=== PATIENT | female | born 1950 | race Caucasian/White ===

== ENCOUNTER → 2016-12-25 | Outpatient (CLI) | payer OTHER ==
--- NOTE | 2016-12-26 07:21 | WWHP ---
DATE OF SERVICE: 12/25/2016 CHIEF COMPLAINT: The patient is here for her routine gynecologic exam. HPI: This is a 66-year-old G4, P3-0-1-3 with an LMP of 2003, who is status post vaginal hysterectomy for benign reasons. The patient is without gynecologic complaints. She is using coconut oil p.r.n. for lubrication during sexual intercourse and this has worked out well for her. PAST MEDICAL HISTORY: Right breast cancer diagnosed in 2008 and is status post lumpectomy and radiation therapy. Also history of skin cancer, chronic hypertension and asthma. Dr. Mcghee is her oncologist and Dr. Farley is her primary care physician. MEDICATIONS: 1. Amlodipine 10 mg daily. 2. Hydrochlorothiazide 25 mg daily. Allergies to LOTREL and DILAUDID. Past surgical, [employer] SAL[employer] REPRESENT[employer]IVE, and family histories are unchanged from the 2016 H&P. SOCIAL HISTORY: She denies tobacco, alcohol, and drug use. She quit smoking in her 30s. She has been since 1970 and does not work outside the home. REVIEW OF SYSTEMS: She has gained about 5 pounds over the last year. She denies respiratory, cardiac, or GI problems. PHYSICAL EXAM: Blood pressure 138/71. Height 5 feet 1 inch. Weight 160 pounds. Temperature 98.2, pulse 81. This a well-developed, well-nourished white female who is alert and oriented x3 in no acute distress. HEENT is within normal limits. NECK: Supple without mass or thyromegaly. CHEST AND LUNGS: Clear to auscultation. HEART: Regular rate and rhythm. Breasts are without mass or discharge. There is a slight indentation consistent with her previous lumpectomy in the outer upper aspect of the right breast. Axillary exam is negative for adenopathy. There is mild tenderness in the area of her previous lymphadenectomy. She states it has always been tender in that area after the surgery. BACK: Negative for CVA tenderness. ABDOMEN: Soft, nontender, without palpable masses. PELVIC EXAM: External genitalia reveals mild to moderate atrophy without lesions. Vagina reveals mild to moderate atrophy without lesions. There is no evidence of prolapse. Bimanual exam is negative for mass or tenderness. Rectovaginal exam is negative for mass or tenderness and is negative for occult blood. EXTREMITIES: Nontender. IMPRESSION: 1. A 66-year-old menopausal female, status post vaginal hysterectomy for benign reasons. 2. History of right breast cancer with no evidence of recurrence. 3. Normal gynecologic exam. PLAN: 1. Pap smears have been discontinued. 2. Self breast examination was discussed. 3. Mammogram will be due in 05/2017 and she states she will do this through Dr. Mcghee. 4. Osteoporosis prevention was discussed. 5. She will return in one year.
== END | disposition home or self-care (01) ==
LOC: WWCWWP 15:21
PROVIDERS: ATTEND Obstetrics & Gynecology
DX: Z01.419 Encounter for gynecological examination (general) (routine) without abnormal findings (principal)

== ENCOUNTER → 2017-03-08 | Outpatient (CLI) | payer OTHER ==
[2017-03-08 11:02] LABS: Anion Gap 12 mmol/L; Blood Urea Nitrogen 16 mg/dL (7-17); Calcium 9.8 mg/dL (8.4-10.2); Carbon Dioxide 26 mmol/L (22-30); Chloride 104 mmol/L (98-107); Glucose 94 mg/dL (74-99); Non-African American GFR(MDRD) >60 (>60 ml/min/1.73 sqM); Potassium 4.1 mmol/L (3.5-5.1); Sodium 142 mmol/L (137-145)
== END | disposition home or self-care (01) ==
LOC: LABWHC1 10:01
PROVIDERS: ATTEND Internal Medicine Clinical Cardiac Electrophysiology
DX: I10 Essential (primary) hypertension (principal)
CPT/HCPCS: 36415; 80048

== ENCOUNTER 2017-06-21 23:06 | Emergency (ER) | payer OTHER ==
--- NOTE | 2017-06-21 23:48 | ED ---
Recheck HPI - General Chief Complaint: Recheck/Abnormal Lab/Rx Stated Complaint: HTN Time Seen by Provider: 06/21/17 23:33 Source: patient, family, RN notes reviewed Mode of arrival: ambulatory Limitations: no limitations - History of Present Illness Initial Comments: Patient is a pleasant 66-year-old male presenting to the emergency department complaining of high blood pressure. Patient noticed her legs were a little bit swollen which does happen at times. Patient checked her blood pressure and readings were as high as 185/94. Patient states when she was lying down and raising her legs and felt like her heart rate was elevated. No chest pain. No dyspnea. Patient does have a history of hypertension previously as well. No calf pain. Patient does admit to having some neck problems however states she believes this is secondary to her pillow and is not really bothering her that much. - Related Data Home Medications Medication Instructions Recorded Confirmed Triamterene-Hctz 37.5-25Mg 1 cap PO DAILY 06/21/17 06/21/17 [Dyazide 37.5-25 Capsule] amLODIPine [Norvasc] 10 mg PO DAILY 06/21/17 06/21/17 Allergies Allergy/AdvReac Type Severity Reaction Status Date / Time benazepril [From Lotrel] Allergy Rash/Hives Verified 06/21/17 23:47 hydromorphone [From Dilaudid] AdvReac Vomiting Verified 06/21/17 23:47 Review of Systems ROS Statement: Those systems with pertinent positive or pertinent negative responses have been documented in the HPI. ROS Other: All systems not noted in ROS Statement are negative. Constitutional: Denies: fever Eyes: Denies: eye pain ENT: Denies: ear pain Respiratory: Denies: cough Cardiovascular: Reports: palpitations. Denies: chest pain Endocrine: Denies: fatigue Gastrointestinal: Denies: abdominal pain Genitourinary: Denies: dysuria Musculoskeletal: Denies: back pain Skin: Denies: rash Neurological: Denies: headache Past Medical History Past Medical History: Cancer, Hypertension History of Any Multi-Drug Resistant Organisms: None Reported Past Surgical History: Breast Surgery Additional Past Surgical History / Comment(s): skin cancer removed Past Psychological History: No Psychological Hx Reported Smoking Status: Never smoker Past Alcohol Use History: None Reported Past Drug Use History: None Reported General Exam Limitations: no limitations General appearance: alert, in no apparent distress Head exam: Present: atraumatic Eye exam: Present: normal appearance, PERRL ENT exam: Present: normal oropharynx Neck exam: Present: normal inspection Respiratory exam: Present: normal lung sounds bilaterally Cardiovascular Exam: Present: regular rate, normal rhythm Expanded Peripheral pulses: 2+: Radial (R), Radial (L), Dorsalis Pedis (R), Dorsalis Pedis (L) GI/Abdominal exam: Present: soft. Absent: tenderness Extremities exam: Present: pedal edema (Trace bilateral). Absent: calf tenderness Neurological exam: Present: alert Psychiatric exam: Present: normal affect, normal mood Skin exam: Present: normal color Course Vital Signs 06/21/17 06/22/17 23:12 00:26 Temperature 98.2 F Pulse Rate 105 H 75 Respiratory 20 16 Rate Blood Pressure 179/92 139/69 O2 Sat by Pulse 97 96 Oximetry - Reevaluation(s) Reevaluation #1: 06/21/17 23:47 EKG: Normal sinus rhythm 99. VA 150. QRS 80. QT 344. QTC 441. Normal axis. Normal QRS. No acute ST change. Medical Decision Making - Medical Decision Making Patient reevaluated and resting comfortably in bed. Patient symptom-free at this time. Patient and family were updated on results and need for follow-up. - Lab Data Result diagrams: 06/21/17 23:30 06/21/17 23:30 Lab Results 06/21/17 06/21/17 06/21/17 Range/Units 23:30 23:30 23:30 WBC 13.3 H (3.8-10.6) k/uL RBC 5.35 (3.80-5.40) m/uL Hgb 15.8 (11.4-16.0) gm/dL Hct 46.3 H (34.0-46.0) % MCV 86.6 (80.0-100.0) fL MCH 29.5 (25.0-35.0) pg MCHC 34.1 (31.0-37.0) g/dL RDW 14.0 (11.5-15.5) % Plt Count 288 (150-450) k/uL Neutrophils % 79 % Lymphocytes % 13 % Monocytes % 6 % Eosinophils % 1 % Basophils % 1 % Neutrophils # 10.5 H (1.3-7.7) k/uL Lymphocytes # 1.7 (1.0-4.8) k/uL Monocytes # 0.8 (0-1.0) k/uL Eosinophils # 0.1 (0-0.7) k/uL Basophils # 0.1 (0-0.2) k/uL PT (9.0-12.0) sec INR (<1.2) APTT (22.0-30.0) sec D-Dimer (<0.60) mg/L FEU Sodium 141 (137-145) mmol/L Potassium 3.7 (3.5-5.1) mmol/L Chloride 104 (98-107) mmol/L Carbon Dioxide 23 (22-30) mmol/L Anion Gap 14 mmol/L BUN 15 (7-17) mg/dL Creatinine 0.60 (0.52-1.04) mg/dL Est GFR (MDRD) Af Amer >60 (>60 ml/min/1.73 sqM) Est GFR (MDRD) Non-Af >60 (>60 ml/min/1.73 sqM) Glucose 118 H (74-99) mg/dL Calcium 10.0 (8.4-10.2) mg/dL Magnesium 2.1 (1.6-2.3) mg/dL Total Bilirubin 0.5 (0.2-1.3) mg/dL AST 22 (14-36) U/L ALT 37 (9-52) U/L Alkaline Phosphatase 88 (38-126) U/L Total Creatine Kinase 89 (30-135) U/L CK-MB (CK-2) 0.9 (0.0-2.4) ng/mL CK-MB (CK-2) Rel Index 1.0 Troponin I <0.012 (0.000-0.034) ng/mL NT-Pro-B Natriuret Pep pg/mL Total Protein 7.9 (6.3-8.2) g/dL Albumin 4.7 (3.5-5.0) g/dL TSH 3.870 (0.465-4.680) mIU/L Free T4 1.26 (0.78-2.19) ng/dL Free T3 pg/mL 4.6 (2.8-5.3) pg/ml 06/21/17 06/21/17 Range/Units 23:30 23:30 WBC (3.8-10.6) k/uL RBC (3.80-5.40) m/uL Hgb (11.4-16.0) gm/dL Hct (34.0-46.0) % MCV (80.0-100.0) fL MCH (25.0-35.0) pg MCHC (31.0-37.0) g/dL RDW (11.5-15.5) % Plt Count (150-450) k/uL Neutrophils % % Lymphocytes % % Monocytes % % Eosinophils % % Basophils % % Neutrophils # (1.3-7.7) k/uL Lymphocytes # (1.0-4.8) k/uL Monocytes # (0-1.0) k/uL Eosinophils # (0-0.7) k/uL Basophils # (0-0.2) k/uL PT 10.2 (9.0-12.0) sec INR 1.0 (<1.2) APTT 24.0 (22.0-30.0) sec D-Dimer 0.45 (<0.60) mg/L FEU Sodium (137-145) mmol/L Potassium (3.5-5.1) mmol/L Chloride (98-107) mmol/L Carbon Dioxide (22-30) mmol/L Anion Gap mmol/L BUN (7-17) mg/dL Creatinine (0.52-1.04) mg/dL Est GFR (MDRD) Af Amer (>60 ml/min/1.73 sqM) Est GFR (MDRD) Non-Af (>60 ml/min/1.73 sqM) Glucose (74-99) mg/dL Calcium (8.4-10.2) mg/dL Magnesium (1.6-2.3) mg/dL Total Bilirubin (0.2-1.3) mg/dL AST (14-36) U/L ALT (9-52) U/L Alkaline Phosphatase (38-126) U/L Total Creatine Kinase (30-135) U/L CK-MB (CK-2) (0.0-2.4) ng/mL CK-MB (CK-2) Rel Index Troponin I (0.000-0.034) ng/mL NT-Pro-B Natriuret Pep 51 pg/mL Total Protein (6.3-8.2) g/dL Albumin (3.5-5.0) g/dL TSH (0.465-4.680) mIU/L Free T4 (0.78-2.19) ng/dL Free T3 pg/mL (2.8-5.3) pg/ml - Radiology Data Radiology results: image reviewed (Chest x-ray shows no acute findings.) Disposition Clinical Impression: Episode of hypertension, Palpitations Disposition: HOME SELF-CARE Condition: Stable Instructions: Hypertension (ED), Palpitations (ED), Edema (ED) Additional Instructions: Please follow-up with your primary care physician in the next day or 2 for recheck. Return for leg pain, leg swelling, chest pain, uncontrolled blood pressure, increased heart rate, worsening or change in symptoms or other concerns. Referrals: Elian Farley MD [Primary Care Provider] - 1-2 days Time of Disposition: 01:25
[2017-06-22 00:10] LABS: Basophils # (A) 0.1 k/uL (0-0.2); Basophils % (A) 1 %; CH 30.9; CHCM 35.9; Eosinophils # (A) 0.1 k/uL (0-0.7); Eosinophils % (A) 1 %; HCT 46.3 % (34.0-46.0); HDW 2.58; HGB 15.8 gm/dL (11.4-16.0); Luc # (Auto) 0.15; Luc % (Auto) 1; Lymphocytes # (A) 1.7 k/uL (1.0-4.8); Lymphocytes % (A) 13 %; MCH 29.5 pg (25.0-35.0); MCHC 34.1 g/dL (31.0-37.0); MCV 86.6 fL (80.0-100.0); Mean Platelet Volume 8.5; Monocytes # (A) 0.8 k/uL (0-1.0); Monocytes % (A) 6 %; Neutrophils # (A) 10.5 k/uL (1.3-7.7); Neutrophils % (A) 79 %; RBC 5.35 m/uL (3.80-5.40); WBC 13.3 k/uL (3.8-10.6); WBC (Perox) 13.35
--- NOTE | 2017-06-22 00:11 | XR ---
EXAM: XR Chest, 2 Views CLINICAL HISTORY: Reason: dysrhythmia TECHNIQUE: Frontal and lateral views of the chest. COMPARISON: 01/05/15 FINDINGS: Lungs: Unremarkable. No consolidation. Pleural space: Unremarkable. No pneumothorax. Heart: Unremarkable. No cardiomegaly. Mediastinum: Unremarkable. Bones/joints: Unremarkable. Soft tissues: Surgical clips noted over the right axilla. IMPRESSION: No acute findings.
[2017-06-22 00:22] LABS: ALT 37 U/L (9-52); AST 22 U/L (14-36); Alkaline Phosphatase 88 U/L (38-126); Anion Gap 14 mmol/L; Blood Urea Nitrogen 15 mg/dL (7-17); Carbon Dioxide 23 mmol/L (22-30); Chloride 104 mmol/L (98-107); Glucose 118 mg/dL (74-99); Magnesium 2.1 mg/dL (1.6-2.3); Non-African American GFR(MDRD) >60 (>60 ml/min/1.73 sqM); Potassium 3.7 mmol/L (3.5-5.1); Prothrombin Time 10.2 sec (9.0-12.0); Sodium 141 mmol/L (137-145); Total Bilirubin 0.5 mg/dL (0.2-1.3); Total Protein 7.9 g/dL (6.3-8.2)
[2017-06-22 00:27] VITALS: RESP 16
[2017-06-22 00:34] LABS: Creatine Kinase 89 U/L (30-135)
[2017-06-22 00:47] LABS: Creatine Kinase MB 0.9 ng/mL (0.0-2.4); Troponin I <0.012 ng/mL (0.000-0.034)
[2017-06-22 01:38] VITALS: BP 123/68; PULSE 74; TEMP 97.4
== END 2017-06-22 01:38 | disposition home or self-care (01) ==
LOC: EC 23:06
DX: I10 Essential (primary) hypertension (principal); R00.2 Palpitations; M79.89 Other specified soft tissue disorders; Z85.828 Personal history of other malignant neoplasm of skin; Z79.899 Other long term (current) drug therapy; Z88.5 Allergy status to narcotic agent; Z88.8 Allergy status to other drugs, medicaments and biological substances
CPT/HCPCS: 36415; 71020; 80053; 82550; 82553; 83735; 83880; 84439; 84443; 84481; 84484; 85025; 85379; 85610; 85730; 93005; 99284

== ENCOUNTER 2017-11-11 03:59 | Emergency (ER) | payer MEDICARE, OTHER ==
[2017-11-11 04:53] LABS: Basophils # (A) 0.1 k/uL (0-0.2); Basophils % (A) 1 %; Eosinophils # (A) 0.3 k/uL (0-0.7); Eosinophils % (A) 1 %; HCT 46.1 % (34.0-46.0); HGB 15.4 gm/dL (11.4-16.0); Lymphocytes # (A) 1.2 k/uL (1.0-4.8); Lymphocytes % (A) 6 %; MCH 28.5 pg (25.0-35.0); MCHC 33.4 g/dL (31.0-37.0); MCV 85.4 fL (80.0-100.0); Mean Platelet Volume 8.2; Monocytes # (A) 1.1 k/uL (0-1.0); Monocytes % (A) 5 %; Neutrophils # (A) 17.9 k/uL (1.3-7.7); Neutrophils % (A) 86 %; Platelet Count 284 k/uL (150-450); RBC 5.39 m/uL (3.80-5.40); RDW 13.8 % (11.5-15.5); WBC 20.7 k/uL (3.8-10.6)
[2017-11-11 05:08] LABS: ALT 18 U/L (9-52); AST 25 U/L (14-36); Albumin 4.3 g/dL (3.5-5.0); Alkaline Phosphatase 76 U/L (38-126); Amylase 55 U/L (30-110); Anion Gap 16 mmol/L; Blood Urea Nitrogen 17 mg/dL (7-17); Calcium 9.9 mg/dL (8.4-10.2); Carbon Dioxide 22 mmol/L (22-30); Chloride 106 mmol/L (98-107); Glucose 119 mg/dL (74-99); Lipase 99 U/L (23-300); Potassium 3.7 mmol/L (3.5-5.1); Sodium 144 mmol/L (137-145); Total Bilirubin 0.4 mg/dL (0.2-1.3); Total Protein 7.3 g/dL (6.3-8.2)
--- NOTE | 2017-11-11 05:08 | ED ---
Nausea/Vomiting/Diarrhea HPI - General Source: patient Mode of arrival: ambulatory Limitations: no limitations - History of Present Illness MD complaint: nausea, vomiting, diarrhea, abdominal pain Onset/Timin -: hour(s) Description of Vomiting: food contents Associated Abdominal Pain: Yes Location: epigastric Radiation: none Severity: severe Quality: aching Consistency: intermittent, now resolved Improves with: none Worsens with: none Associated Symptoms: nausea/vomiting <Jamal Carrasco - Last Filed: 11/11/17 05:14> <Elian Perdue - Last Filed: 11/11/17 08:54> - General Chief complaint: Nausea/Vomiting/Diarrhea Stated complaint: NVD Time Seen by Provider: 11/11/17 04:20 - History of Present Illness Initial comments: This patient is 67-year-old woman who presents here to be evaluated for abdominal pain, vomiting, and diarrhea. The patient states that she had gone to bed feeling like her usual self and then was awoken by intermittent, severe, epigastric pains, starting around 1 AM. The patient's states she also had nausea and she had about 3 episodes of vomiting as well as one of diarrhea. The patient did not note blood or coffee-ground type material. (Jamal Carrasco) - Related Data Home Medications Medication Instructions Recorded Confirmed Triamterene-Hctz 37.5-25Mg 1 cap PO DAILY 06/21/17 11/11/17 [Dyazide 37.5-25 Capsule] amLODIPine [Norvasc] 10 mg PO DAILY 06/21/17 11/11/17 Naproxen Sodium [Aleve] 220 mg PO DAILY PRN 11/11/17 11/11/17 Previous Rx's Medication Instructions Recorded Nitrofurantoin Monohyd/M-Cryst 100 mg PO Q12HR #10 cap 11/11/17 [Macrobid] Allergies Allergy/AdvReac Type Severity Reaction Status Date / Time benazepril [From Lotrel] Allergy Rash/Hives Verified 11/11/17 07:32 hydromorphone [From Dilaudid] AdvReac Vomiting Verified 11/11/17 07:32 Review of Systems ROS Other: All systems not noted in ROS Statement are negative. Constitutional: Denies: fever, chills Respiratory: Denies: cough, dyspnea, wheezes Cardiovascular: Denies: chest pain, palpitations, orthopnea, edema Gastrointestinal: Reports: abdominal pain, nausea, vomiting, diarrhea. Denies: hematemesis, melena, hematochezia Genitourinary: Denies: dysuria, hematuria Musculoskeletal: Denies: back pain Skin: Denies: rash Neurological: Denies: headache, weakness, numbness <Jamal Carrasco - Last Filed: 11/11/17 05:14> ROS Other: All systems not noted in ROS Statement are negative. <NetteElian Fabiano - Last Filed: 11/11/17 08:54> ROS Statement: Those systems with pertinent positive or pertinent negative responses have been documented in the HPI. Past Medical History Past Medical History: Cancer, Hypertension Additional Past Medical History / Comment(s): right side breast CA with lymph node removal History of Any Multi-Drug Resistant Organisms: None Reported Past Surgical History: Breast Surgery Additional Past Surgical History / Comment(s): skin cancer removed Past Psychological History: No Psychological Hx Reported Smoking Status: Never smoker Past Alcohol Use History: None Reported Past Drug Use History: None Reported <DaniloJamal - Last Filed: 11/11/17 05:14> General Exam Limitations: no limitations General appearance: alert, in no apparent distress Head exam: Present: atraumatic, normocephalic Eye exam: Present: normal appearance. Absent: scleral icterus, conjunctival injection ENT exam: Present: normal oropharynx Neck exam: Present: normal inspection, full ROM Respiratory exam: Present: normal lung sounds bilaterally. Absent: respiratory distress, wheezes, rales, rhonchi, stridor Cardiovascular Exam: Present: regular rate, normal rhythm, normal heart sounds. Absent: systolic murmur, diastolic murmur, rubs, gallop GI/Abdominal exam: Present: soft. Absent: distended, tenderness, guarding, rebound, mass Extremities exam: Present: normal inspection, normal capillary refill. Absent: pedal edema, calf tenderness Back exam: Present: normal inspection. Absent: CVA tenderness (R), CVA tenderness (L) Skin exam: Present: warm, dry, intact, normal color. Absent: rash <DaniloJamal - Last Filed: 11/11/17 05:14> Vital Signs 11/11/17 11/11/17 11/11/17 04:04 06:08 07:28 Temperature 98.0 F Pulse Rate 81 85 79 Respiratory 16 18 18 Rate Blood Pressure 153/87 142/67 131/61 O2 Sat by Pulse 99 95 97 Oximetry Medical Decision Making - Lab Data Result diagrams: 11/11/17 04:20 11/11/17 04:20 - EKG Data -: EKG Interpreted by [place] EKG shows normal: sinus rhythm, axis (Normal), intervals (Normal), QRS complexes (Normal), ST-T waves (Normal) Rate: normal (Rate 77 bpm) Interpretation: normal EKG <Jamal Carrasco - Last Filed: 11/11/17 05:14> - Lab Data Result diagrams: 11/11/17 04:20 11/11/17 04:20 <Elian Perdue - Last Filed: 11/11/17 08:54> - Lab Data Lab Results 11/11/17 11/11/17 11/11/17 Range/Units 04:13 04:20 04:20 WBC 20.7 H (3.8-10.6) k/uL RBC 5.39 (3.80-5.40) m/uL Hgb 15.4 (11.4-16.0) gm/dL Hct 46.1 H (34.0-46.0) % MCV 85.4 (80.0-100.0) fL MCH 28.5 (25.0-35.0) pg MCHC 33.4 (31.0-37.0) g/dL RDW 13.8 (11.5-15.5) % Plt Count 284 (150-450) k/uL Neutrophils % 86 % Lymphocytes % 6 % Monocytes % 5 % Eosinophils % 1 % Basophils % 1 % Neutrophils # 17.9 H (1.3-7.7) k/uL Lymphocytes # 1.2 (1.0-4.8) k/uL Monocytes # 1.1 H (0-1.0) k/uL Eosinophils # 0.3 (0-0.7) k/uL Basophils # 0.1 (0-0.2) k/uL Sodium 144 (137-145) mmol/L Potassium 3.7 (3.5-5.1) mmol/L Chloride 106 (98-107) mmol/L Carbon Dioxide 22 (22-30) mmol/L Anion Gap 16 mmol/L BUN 17 (7-17) mg/dL Creatinine 0.80 (0.52-1.04) mg/dL Est GFR (MDRD) Af Amer >60 (>60 ml/min/1.73 sqM) Est GFR (MDRD) Non-Af >60 (>60 ml/min/1.73 sqM) Glucose 119 H (74-99) mg/dL Calcium 9.9 (8.4-10.2) mg/dL Total Bilirubin 0.4 (0.2-1.3) mg/dL AST 25 (14-36) U/L ALT 18 (9-52) U/L Alkaline Phosphatase 76 (38-126) U/L Total Protein 7.3 (6.3-8.2) g/dL Albumin 4.3 (3.5-5.0) g/dL Amylase 55 (30-110) U/L Lipase 99 (23-300) U/L Urine Color Yellow Urine Appearance Clear (Clear) Urine pH 7.0 (5.0-8.0) Ur Specific Solomon 1.021 (1.001-1.035) Urine Protein 1+ H (Negative) Urine Glucose (UA) Negative (Negative) Urine Ketones Negative (Negative) Urine Blood Negative (Negative) Urine Nitrite Negative (Negative) Urine Bilirubin Negative (Negative) Urine Urobilinogen <2.0 (<2.0) mg/dL Ur Leukocyte Esterase Small H (Negative) Urine RBC 1 (0-5) /hpf Urine WBC 8 H (0-5) /hpf Ur Squamous Epith Cells 1 (0-4) /hpf Hyaline Casts 1 (0-2) /lpf Urine Mucus Few H (None) /hpf Disposition <Jamal Carrasco - Last Filed: 11/11/17 05:14> <Elian Perdue - Last Filed: 11/11/17 08:54> Clinical Impression: Gastroenteritis, Dehydration, Nausea & vomiting Disposition: HOME SELF-CARE Condition: Good Instructions: Acute Nausea and Vomiting (ED), Acute Diarrhea (ED) Prescriptions: Nitrofurantoin Monohyd/M-Cryst [Macrobid] 100 mg PO Q12HR #10 cap Referrals: Elian Farley MD [Primary Care Provider] - 1-2 days
[2017-11-11 05:29] LABS: Appearance,Urine Clear (Clear); Bilirubin,Urine Negative (Negative); Blood,Urine Negative (Negative); Color,Urine Yellow; Glucose,Urine (UA) Negative (Negative); Hyaline Casts,Urine 1 /lpf (0-2); Ketones,Urine Negative (Negative); Leukocyte Esterase,Urine Small (Negative); Mucus,Urine Few /hpf; Nitrite,Urine Negative (Negative); Protein,Urine 1+ (Negative); RBC,Urine 1 /hpf (0-5); Specific Gravity,Urine 1.021 (1.001-1.035); Squamous Epithelial Cell,Urine 1 /hpf (0-4); Urobilinogen,Urine <2.0 mg/dL (<2.0); WBC,Urine 8 /hpf (0-5)
--- NOTE | 2017-11-11 08:00 | CT ---
INDICATION: Nausea vomiting and diarrhea, history of right breast cancer TECHNIQUE: CT acquisition is performed through the abdomen and pelvis. Sagittal and coronal reformatted images are provided. No IV contrast is administered. DOSE INFORMATION: DLP 763 mGy-cm. One or more of the following dose reduction techniques were used: automated exposure control, adjustment of the mA and/or kV according to patient size, use of iterative reconstruction technique. COMPARISON: None. FINDINGS: The lung bases are clear. Evaluation is limited without intravenous contrast. The liver, gallbladder, spleen, pancreas, and adrenal glands are unremarkable. Both kidneys are similar in size and contour. There is no hydronephrosis. There are no radiopaque urinary stones. The urinary bladder is decompressed. The uterus is surgically absent. There is aortoiliac atherosclerosis without aneurysm. There is no adenopathy. The visualized appendix is normal. There is no evidence of small or large bowel obstruction. There are no inflammatory changes of bowel. There are no acute osseous findings. There is moderate degenerative disc disease at L4-L5. IMPRESSION: 1. No CT evidence of acute or inflammatory process in the abdomen or pelvis.
[2017-11-11] MEDS ORDERED: ONDANSETRON 4 MG/2 ML VIAL IVP STA (08:52)
[2017-11-11] MEDS ORDERED: SODIUM CHLORIDE 0.9% 500 ML IV STA (08:52)
[2017-11-11] MEDS ORDERED: SODIUM CHLORIDE 0.9% 1,000 ML IV STA (08:52)
[2017-11-11] MEDS ORDERED: ACETAMINOPHEN IV (For NPO) 1,000 MG in EMPTY BAG 1 BAG IVPB STA (08:52)
[2017-11-11] MEDS ORDERED: PANTOPRAZOLE 40 MG/10 ML VIAL IVP STA (08:52)
[2017-11-11] MEDS ORDERED: cefTRIAXone IN SWFI 1,000 MG/10 ML SYRINGE IVP STA (08:53)
[2017-11-11 09:09] VITALS: BP 123/64; PULSE 70; RESP 16; TEMP 97.1
== END 2017-11-11 09:08 | disposition home or self-care (01) ==
LOC: EC 03:59
DX: K52.9 Noninfective gastroenteritis and colitis, unspecified (principal); E86.0 Dehydration; I10 Essential (primary) hypertension; Z85.3 Personal history of malignant neoplasm of breast; Z85.828 Personal history of other malignant neoplasm of skin; Z79.899 Other long term (current) drug therapy; Z88.5 Allergy status to narcotic agent; Z88.8 Allergy status to other drugs, medicaments and biological substances
CPT/HCPCS: 36415; 74176; 80053; 81001; 82150; 83690; 85025; 93005; 99284

== ENCOUNTER → 2018-01-15 | Outpatient (CLI) | payer MEDICARE, OTHER ==
[2018-01-15 11:08] VITALS: BP 150/86; PULSE 81; RESP 16; TEMP 97.5; BMI 27.7
--- NOTE | 2018-01-15 12:09 | P.HPOB ---
History of Present Illness H&P Date: 01/15/18 Chief Complaint: The patient is here for her routine gynecologic exam. This is a 67 year old with an LMP of 2003. She is status post vaginal hysterectomy for benign reasons. She has been experiencing more discomfort with sexual intercourse and she describes it as vaginal dryness not improved with a lubricant. She is otherwise without gynecologic complaints. Review of Systems She has intentionally lost 14 pounds over the last year with dietary changes. She denies respiratory or cardiac problems. G.I.: occasional gastric reflux. The patient also denies maltreatment or problems with falling. : the patient denies any significant problems with urinary leakage. Past Medical History Past Medical History: Cancer (Right breast cancer in 2009 status post lumpectomy and radiation therapy. Also history of skin cancer.), Hypertension History of Any Multi-Drug Resistant Organisms: None Reported Past Surgical History: Breast Surgery (Right lumpectomy), Section, Hysterectomy (Vaginal hysterectomy 2010) Additional Past Surgical History / Comment(s): skin cancer removed. Colonoscopy 2014. Past Psychological History: No Psychological Hx Reported Smoking Status: Former smoker (Quit in her 30s) Past Alcohol Use History: None Reported Past Drug Use History: None Reported Additional History: She is been since 1970 and does not work outside of the home. She has one great grandchild. - Past Family History Brother(s) Family Medical History: COPD Daughter(s) Family Medical History: Diabetes Mellitus (Type I diabetes) Medications and Allergies Home Medications Medication Instructions Recorded Confirmed Type Triamterene-Hctz 37.5-25Mg 1 cap PO DAILY 06/21/17 01/15/18 History [Dyazide 37.5-25 Capsule] amLODIPine [Norvasc] 10 mg PO DAILY 06/21/17 01/15/18 History Naproxen Sodium [Aleve] 220 mg PO DAILY PRN 11/11/17 01/15/18 History Allergies Allergy/AdvReac Type Severity Reaction Status Date / Time benazepril [From Lotrel] Allergy Rash/Hives Verified 11/11/17 07:32 hydromorphone [From Dilaudid] AdvReac Vomiting Verified 11/11/17 07:32 Exam - Vital Signs Vital signs: Vital Signs Temp Pulse Resp BP 01/15/18 10:53 97.5 F L 81 16 150/86 Intake and Output 01/14/18 01/15/18 01/15/18 22:59 06:59 14:59 Other: Weight 66.621 kg Height 5'1", BMI 27.8. This is a well-developed well-nourished white female who is alert and oriented times 3 in no acute distress. HEENT: Within normal limits. NECK: Supple without mass or thyromegaly. CHEST AND LUNGS: Clear to auscultation. HEART: Regular rate and rhythm. BREASTS: the right breast is consistent with previous lumpectomy. The right breast is firmer than the left breast consistent with her previous surgery and radiation therapy. There are no breast masses or discharge. Axillary exam is negative for adenopathy AXILLARY EXAM: Negative for adenopathy. BACK: Negative for CVA tenderness. ABDOMEN: Soft, nontender, without palpable masses. PELVIC EXAM: External genitalia appears normal with moderate atrophy. Vagina appears normal with moderate atrophy. There is no evidence of prolapse. Bimanual examination is negative for mass or tenderness. RECTAL EXAM: Rectovaginal exam is negative for mass or tenderness and is negative for occult blood. EXTREMITIES: Nontender. IMPRESSION: 1. 67-year-old menopausal female status post vaginal hysterectomy for benign reasons. 2. Vaginal dryness causing dyspareunia secondary to genital atrophy. 3. History of right breast cancer status post lumpectomy and radiation therapy with no evidence of recurrence. 4. History of osteopenia. PLAN: 1. Pap smears have been discontinued. 2. Self breast awareness was discussed with the patient. 3. I have recommended home blood pressure checks and she is to follow up with her primary care doctor or plumbing manager for blood pressure elevations. 4. I do not believe she is a good candidate for vaginal estrogen because of her history of breast cancer. She will look for a vaginal moisturizer to use as directed. She can also use lubricants as directed. We've also discussed vaginal relaxation techniques to see if this can help with her discomfort with intercourse. 5. She will be due for her mammogram later this year. She will get the order from Dr. Mcghee as she has done in the past. 6. She is scheduled for bone density test later this year and this was ordered by her primary care doctor. 7. She will return one year.
== END | disposition home or self-care (01) ==
LOC: WWCWWP 10:48
PROVIDERS: ATTEND Obstetrics & Gynecology
DX: Z53.9 Procedure and treatment not carried out, unspecified reason (principal)

== ENCOUNTER → 2018-01-28 | Outpatient (CLI) | payer MEDICARE, OTHER ==
--- NOTE | 2018-01-28 13:18 | BD ---
EXAMINATION TYPE: MG DEXA axial skeleton. DATE OF EXAM: 01/28/2018 COMPARISON: DEXA bone scan October 29, 2014. CLINICAL HISTORY: screening. Postmenopausal female. Height: 5' Weight: 145 FRAX RISK QUESTIONS: Alcohol (3 or more units per day): no Family History (Parent hip fracture): yes Glucocorticoids (More than 3mos): no (Ex: prednisone, prednisolone, methylprednisolone, dexamethasone, and hydrocortisone). History of Fracture in Adulthood: no Secondary Osteoporosis: 1. Type 1 Diabetes: no 2. Hyperthyroidism: no 3. Menopause before 45: no 4. Malnutrition: no 5. Chronic liver disease: no Rheumatoid Arthritis: no Current Tobacco Use: no RISK FACTORS HISTORY OF: Family History of Osteoporosis: y Postmenopausal woman: MEDICATIONS: Additional Medications: blood pressure, Additional History: skin cancer, breast cancer EXAM MEASUREMENTS: Bone mineral densitometry was performed using the [employer]. Bone mineral density as measured about the Lumbar spine is: ----- L1-L4(G/cm2): 1.058 T Score Values are as follows: ----- L2: -1.7 ----- L3: -1.2 ----- L4: -0.2 ----- L1-L4: -1.0 Bone mineral density has: Decreased -6.0% since study of: 10/29/2014 Bone mineral density about the R hip (g/cm2): 0.950 Bone mineral density about the L hip (g/cm2): 0.919 T Score values are as follows: -----R Neck: -0.6 -----L Neck: -0.9 -----R Total: -0.2 -----L Total: -0.3 Bone mineral density has: Decreased -2.7% since study of: 10/29/2014 IMPRESSION: Osteopenia (T Score between -2.5 and -1) is now identified at 2 consecutive levels in low back. Bone density is decreased or diminished from prior. There is slightly increased risk of fracture and the patient may be considered for treatment. Re-Screen 2-5 years. NOTE: T-SCORE=SD OF THE YOUNG ADULT MEAN.
== END | disposition home or self-care (01) ==
LOC: RADBDWWP 12:09
PROVIDERS: ATTEND Family Medicine
DX: M85.88 Other specified disorders of bone density and structure, other site (principal)
CPT/HCPCS: 77080

== ENCOUNTER → 2019-04-14 | Outpatient (CLI) | payer MEDICARE ==
--- NOTE | 2019-04-15 09:53 | MM ---
Reason for exam: screening (asymptomatic). Last mammogram was performed 1 year ago. History: Patient is postmenopausal, has history of breast cancer at age 58, and history of other cancer. Lumpectomy of the right breast, 2008. Took hormonal contraceptives for 2 years. Physical Findings: A clinical breast exam by your physician is recommended on an annual basis and results should be correlated with mammographic findings. MG 3D Screening Mammo W/Cad Bilateral CC and MLO view(s) were taken. Prior study comparison: April 09, 2018, mammogram. March 27, 2017, mammogram. The breast tissue is heterogeneously dense. This may lower the sensitivity of mammography. Stable benign calcifications. There is no discrete abnormality. No significant changes when compared with prior studies. ASSESSMENT: Benign, BI-RAD 2 RECOMMENDATION: Routine screening mammogram of both breasts in 1 year.
== END ==
LOC: WWCWWP 09:14
PROVIDERS: ATTEND Obstetrics & Gynecology
DX: Z12.31 Encounter for screening mammogram for malignant neoplasm of breast (principal)
CPT/HCPCS: 77063; 77067

== ENCOUNTER → 2019-06-23 | Outpatient (CLI) | payer MEDICARE ==
[2019-06-23 11:02] VITALS: BP 163/92; PULSE 91; RESP 18; TEMP 98; BMI 28.9
--- NOTE | 2019-06-23 13:07 | P.HPOB ---
History of Present Illness H&P Date: 06/23/19 Chief Complaint: The patient is here for her routine gynecologic exam. This is a 68-year-old with an LMP of 2003. The patient is status post of vaginal hysterectomy for benign reasons. She recently had some vulvar pruritus that started about 2 months ago. She also recently was having problems with oral thrush. She was seen at an urgent care center and was given a prescription for Diflucan 100 mg Q HS times 7 days and is currently taking this. She states her symptoms have resolved including the vulvar pruritus. She denies vaginal discharge. She has also experienced some left axillary paresthesias and has frequently had symptoms after her breast cancer surgery which included a lymphadenectomy in 2008. Review of Systems She has had a 7 pound weight gain over the past year. She denies respiratory, cardiac and G.I. problems. She denies maltreatment or problems with falling. : she denies any significant problems with urinary leakage. Past Medical History Past Medical History: Cancer, Hypertension Additional Past Medical History / Comment(s): right side breast CA with lymph node removal(lumpectomy and radiation). Skin cancer. 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 History of Any Multi-Drug Resistant Organisms: None Reported Past Surgical History: Breast Surgery, Section, Hysterectomy Additional Past Surgical History / Comment(s): Right breast lumpectomy 2008. section. Vaginal hysterectomy 2010. Skin cancer removed. Colonoscopy 2014. Past Psychological History: No Psychological Hx Reported Smoking Status: Former smoker Past Alcohol Use History: None Reported Additional Past Alcohol Use History / Comment(s): Quit smoking in her 30s. Past Drug Use History: None Reported Additional History: She has been since 1970 and does not work outside of the home. She has one great grandchild. - Past Family History Brother(s) Family Medical History: COPD Daughter(s) Family Medical History: Diabetes Mellitus Additional Family Medical History / Comment(s): Type I diabetes. Medications and Allergies Home Medications Medication Instructions Recorded Confirmed Type Triamterene-Hctz 37.5-25Mg 1 cap PO DAILY 06/21/17 06/23/19 History [Dyazide 37.5-25 Capsule] amLODIPine [Norvasc] 10 mg PO DAILY 06/21/17 06/23/19 History Naproxen Sodium [Aleve] 220 mg PO DAILY PRN 01/29/18 09/10/19 History Cbd Oil 550 mg SUBLINGUAL DAILY PRN 06/23/19 06/23/19 History Fluconazole [Diflucan] 100 mg PO DAILY 06/23/19 06/23/19 History Allergies Allergy/AdvReac Type Severity Reaction Status Date / Time benazepril [From Lotrel] Allergy Rash/Hives Verified 06/23/19 11:02 hydromorphone [From Dilaudid] AdvReac Vomiting Verified 06/23/19 11:02 Exam Vital Signs Temp Pulse Resp BP Pulse Ox 06/23/19 10:52 98.0 F 91 18 163/92 97 Intake and Output 06/22/19 06/23/19 06/23/19 22:59 06:59 14:59 Other: Weight 69.4 kg Height 5'1", weight 153 pounds, BMI 28.9. This is a well-developed well-nourished white female who is alert and oriented times 3 in no acute distress. HEENT: Within normal limits. NECK: Supple without mass or thyromegaly. CHEST AND LUNGS: Clear to auscultation. HEART: Regular rate and rhythm. BREASTS: Are without mass or discharge. The right breast is consistent with previous lumpectomy. There is some firmness around the lumpectomy site consistent with previous surgery and radiation therapy. There are no discrete masses. AXILLARY EXAM: Negative for adenopathy. There is edema within the right axillary region which the patient states she has had from the time of her lymphadenectomy surgery in 2008. BACK: Negative for CVA tenderness. ABDOMEN: Soft, nontender, without palpable masses. PELVIC EXAM: External genitalia appears normal with mild to moderate atrophy. Vagina appears normal with mild to moderate atrophy. There is no evidence of prolapse. Bimanual examination is negative for mass or tenderness. RECTAL EXAM: Rectovaginal exam is negative for mass or tenderness and is negative for occult blood. EXTREMITIES: Nontender. IMPRESSION: 1. 68-year-old menopausal female status post vaginal hysterectomy with normal gynecologic exam. 2. Recent vulvar pruritus which resolved with Diflucan use which was used to treat oral thrush. Her vulvar pruritus may or may not have been related to vaginal candidiasis, but there is no evidence of caesar vaginitis at this time. 3. History of right breast cancer status post lumpectomy and radiation therapy with no evidence of recurrence. 4. Chronic intermittent symptoms from lymphedema following lymphadenectomy in the right axilla in 2008. 5. History of osteopenia. PLAN: 1. Pap smears have been discontinued. 2. Self breast awareness was discussed with the patient. 3. Mammogram was recently done on 04/14/19 and was benign. She will continue to do these yearly. 4. Osteoporosis prevention was discussed. I have stressed the importance of adequate calcium, vitamin D and regular exercise. Recommended amounts of calcium and vitamin D were also discussed. We will plan and repeating bone density testing in one year. 5. Booklets on managing lymphedema were given to the patient. We have also given her the name of a lymphedema specialist in [place] if she continues to have problems. 6. She does not get flu shots in the fall. I have recommended that she reconsider this decision. 7. She was advised to return in one year for her annual well woman exam.
== END ==
LOC: WWCWWP 10:32
PROVIDERS: ATTEND Obstetrics & Gynecology
DX: Z53.9 Procedure and treatment not carried out, unspecified reason (principal)

== ENCOUNTER → 2020-04-20 | Day surgery (SDC) | payer MEDICARE ==
[2020-04-14 11:17] VITALS: BMI 28.3
[~2020-04-20] MED LIST: LACTATED RINGERS 1,000 ML IV SCH; LIDOCAINE 1% (10MG/ML) FOR IV START INTRADERMA PRN; MIDAZOLAM 2 MG/2 ML VIAL IVP ONE; ONDANSETRON 4 MG/2 ML VIAL ONE; PROPOFOL 10 MG/ML 20 ML VIAL IV ONE
--- NOTE | 2020-04-20 08:08 | P.GSHP ---
History of Present Illness H&P Date: 04/20/20 CHIEF COMPLAINT: Colon screen HISTORY OF PRESENT ILLNESS: The patient is a 69-year-old female who presents for colon screen. Lower endoscopy was offered for further evaluation and management. PAST MEDICAL HISTORY: Please see list. PAST SURGICAL HISTORY: Please see list. MEDICATIONS: Please see list. ALLERGIES: Please see list. SOCIAL HISTORY: No illicit drug use FAMILY HISTORY: No reports of Crohn disease or ulcerative colitis. REVIEW OF ORGAN SYSTEMS: CONSTITUTIONAL: No reports of fevers or chills. PHYSICAL EXAM: VITAL SIGNS: Stable GENERAL: Well-developed pleasant in no acute distress. HEENT: No scleral icterus. Extraocular movements grossly intact. Moist buccal mucosa. NECK: Supple without lymphadenopathy. CHEST: Unlabored respirations. Equal bilateral excursions. CARDIOVASCULAR: Regular rate and rhythm. Distal 2+ pulses. ABDOMEN: Soft, nontender, nondistended. MUSCULOSKELETAL: No clubbing, cyanosis, or edema. ASSESSMENT: 1. Colon screen. PLAN: 1. Recommend proceeding with a lower endoscopy Past Medical History Past Medical History: Cancer, Hypertension, Osteoarthritis (OA) Additional Past Medical History / Comment(s): right side breast CA with lymph node removal(lumpectomy and radiation). Skin cancer. bout of loose stools recently, past hx. colon polyps History of Any Multi-Drug Resistant Organisms: None Reported Past Surgical History: Breast Surgery, Section, Hysterectomy, Tubal Ligation Additional Past Surgical History / Comment(s): Right breast lumpectomy 2008. Colonoscopy 2014., skin cancer removed from shoulder, D & C Past Anesthesia/Blood Transfusion Reactions: Postoperative Nausea & Vomiting (PONV) Smoking Status: Former smoker - Past Family History Brother(s) Family Medical History: COPD Daughter(s) Family Medical History: Diabetes Mellitus Additional Family Medical History / Comment(s): Type I diabetes. Medications and Allergies Home Medications Medication Instructions Recorded Confirmed Type Triamterene-Hctz 37.5-25Mg 1 cap PO DAILY 06/21/17 04/14/20 History [Dyazide 37.5-25 Capsule] amLODIPine [Norvasc] 10 mg PO DAILY 06/21/17 04/14/20 History Naproxen Sodium [Aleve] 220 mg PO DAILY PRN 11/11/17 04/14/20 History Cbd Oil 550 mg SUBLINGUAL DAILY PRN 06/23/19 04/14/20 History Cholecalciferol [Vitamin D3 (25 10,000 unit PO DAILY 04/14/20 04/14/20 History Mcg = 1000 Iu)] Fluticasone Nasal [place] [Flonase 2 spr EA NOSTRIL DAILY 04/14/20 04/14/20 History Nasal [place]] Allergies Allergy/AdvReac Type Severity Reaction Status Date / Time benazepril [From Lotrel] Allergy Rash/Hives Verified 04/14/20 10:50 hydromorphone [From Dilaudid] AdvReac Vomiting Verified 04/14/20 10:50
--- NOTE | 2020-04-20 23:48 | P.PCN ---
Date of Procedure: 04/20/20 Description of Procedure: PREOPERATIVE DIAGNOSIS: Personal history of colon polyps High-risk colonoscopy screening POSTOPERATIVE DIAGNOSIS: Personal history of colon polyps High-risk colonoscopy screening Diverticulosis, sigmoid colon OPERATION: Colonoscopy to the cecum, ileocecal valve and appendiceal orifice. SURGEON: Bethany Russell MD. ANESTHESIA: MAC. INDICATIONS: The patient is a 69-year-old female who presents for colonoscopy screening. Last colonoscopy 5 years ago. Benefits and risks were described and informed consent was obtained. DESCRIPTION OF PROCEDURE: The patient had undergone Suprep. She had been brought into the operating room and laid in the left lateral decubitus position. After adequate intravenous sedation, the rectum was examined with 2% lidocaine jelly. No external hemorrhoids were encountered. The rectal tone was within normal limits. No lesions were palpated in the rectal vault. An Olympus colonoscope was exchanged to a pediatric colonoscope to advance beyond the sigmoid colon. The scope was advanced until the cecum, ileocecal valve and appendiceal orifice were clearly viewed after applying moderate abdominal pressure. The sigmoid colon was highly redundant. The prep was excellent with clear visualization of the mucosal folds. The scope was removed with visualization of each mucosal fold. Sigmoid diverticulosis was encountered. No colonic polyps were found. No evidence of focal colitis was found. Retroflexion of the scope demonstrated grade 1 internal hemorrhoids without active bleeding or inflammation. The colon was desufflated. The patient had tolerated the procedure well. Withdrawal time was over 6 minutes. FINDINGS: Aronchick preparation quality scale 1 (1-5) Internal hemorrhoids, grade 1 No external prolapsed hemorrhoids. No arteriovenous malformations. No adenomatous polyps. No focal colitis. Moderate sigmoid diverticulosis Highly tortuous sigmoid colon required pediatric colonoscope RECOMMENDATIONS: Due to high-risk colonoscopy, recommend colonguard in 5 years, 2024 Plan - Discharge Summary Discharge Rx Participant: No New Discharge Prescriptions: No Action amLODIPine [Norvasc] 10 mg PO DAILY Triamterene-Hctz 37.5-25Mg [Dyazide 37.5-25 Capsule] 1 cap PO DAILY Naproxen Sodium [Aleve] 220 mg PO DAILY PRN PRN Reason: Pain Cbd Oil 550 mg SUBLINGUAL DAILY PRN PRN Reason: Pain Cholecalciferol [Vitamin D3 (25 Mcg = 1000 Iu)] 10,000 unit PO DAILY Fluticasone Nasal [place] [Flonase Nasal [place]] 2 spr EA NOSTRIL DAILY Discharge Medication List Triamterene-Hctz 37.5-25Mg [Dyazide 37.5-25 Capsule] 1 cap PO DAILY 06/21/17 [History] amLODIPine [Norvasc] 10 mg PO DAILY 06/21/17 [History] Naproxen Sodium [Aleve] 220 mg PO DAILY PRN 11/11/17 [History] Cbd Oil 550 mg SUBLINGUAL DAILY PRN 06/23/19 [History] Cholecalciferol [Vitamin D3 (25 Mcg = 1000 Iu)] 10,000 unit PO DAILY 04/14/20 [History] Fluticasone Nasal [place] [Flonase Nasal [place]] 2 spr EA NOSTRIL DAILY 04/14/20 [History] Follow up Appointment(s)/Referral(s): Bethany Russell MD [STAFF PHYSICIAN] - As Needed Patient Instructions/Handouts: Diverticulosis Diet (GEN), Diverticulosis (ED) Activity/Diet/Wound Care/Special Instructions: Recommend Cologaurd in 5 years, 2024 Discharge Disposition: HOME SELF-CARE
[2020-04-22 09:22] VITALS: BP 153/92; PULSE 89; RESP 16; TEMP 98.3
== END | disposition home or self-care (01) ==
LOC: ORWHC2ENDO 08:45
PROVIDERS: ATTEND Surgery Plastic and Reconstructive Surgery
DX: Z12.11 Encounter for screening for malignant neoplasm of colon (principal); K57.30 Diverticulosis of large intestine without perforation or abscess without bleeding; K64.0 First degree hemorrhoids; Q43.8 Other specified congenital malformations of intestine; I10 Essential (primary) hypertension; M19.90 Unspecified osteoarthritis, unspecified site; H91.90 Unspecified hearing loss, unspecified ear; Z86.010 Personal history of colon polyps; Z88.5 Allergy status to narcotic agent; Z88.8 Allergy status to other drugs, medicaments and biological substances; Z85.3 Personal history of malignant neoplasm of breast; Z98.890 Other specified postprocedural states; Z92.3 Personal history of irradiation; Z85.828 Personal history of other malignant neoplasm of skin; Z87.19 Personal history of other diseases of the digestive system; Z90.710 Acquired absence of both cervix and uterus; Z98.51 Tubal ligation status; Z91.89 Other specified personal risk factors, not elsewhere classified; Z87.891 Personal history of nicotine dependence; Z79.899 Other long term (current) drug therapy; Z79.1 Long term (current) use of non-steroidal anti-inflammatories (NSAID); Z97.2 Presence of dental prosthetic device (complete) (partial); Z82.5 Family history of asthma and other chronic lower respiratory diseases; Z83.3 Family history of diabetes mellitus
CPT/HCPCS: G0105; J2250; J2405; J2704; 45378

== ENCOUNTER → 2020-05-17 | Outpatient (CLI) | payer MEDICARE ==
[2020-05-17 15:12] VITALS: BP 163/80; PULSE 82; RESP 18; TEMP 97.8
--- NOTE | 2020-05-17 16:00 | P.HPOB ---
History of Present Illness H&P Date: 05/17/20 Chief Complaint: The patient is here for her routine gynecologic exam and ma mmogram. This is a 69-year-old 013 with an LMP of 2003. The patient is status post vaginal hysterectomy for benign reasons. The patient is without gynecologic complaints. Review of Systems She has lost 3 pounds over the past year. She denies respiratory, cardiac and G.I. problems. She denies maltreatment or problems with falling. : she denies any significant problems with urinary leakage. Past Medical History Past Medical History: Cancer, Hypertension, Osteoarthritis (OA) Additional Past Medical History / Comment(s): right side breast CA with lymph node removal 2008(lumpectomy and radiation). Skin cancer. Hx diverticulosis and colon polyps. 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 History of Any Multi-Drug Resistant Organisms: None Reported Past Surgical History: Breast Surgery, Section, Hysterectomy, Tubal Ligation Additional Past Surgical History / Comment(s): Right breast lumpectomy 2008. Colonoscopy 2014., skin cancer removed from shoulder, D & C. Vaginal history 2010. Colonoscopy 2019(Cologard 2024 recommended). Past Anesthesia/Blood Transfusion Reactions: Postoperative Nausea & Vomiting (PONV) Past Psychological History: No Psychological Hx Reported Smoking Status: Former smoker Past Alcohol Use History: None Reported Additional Past Alcohol Use History / Comment(s): Quit smoking in her 30s. Past Drug Use History: None Reported Additional History: She has been since 1970 does not work outside of the home. She has 1 great grandchild. - Past Family History Brother(s) Family Medical History: COPD Daughter(s) Family Medical History: Diabetes Mellitus Additional Family Medical History / Comment(s): Type I diabetes. Medications and Allergies Home Medications Medication Instructions Recorded Confirmed Type Triamterene-Hctz 37.5-25Mg 1 cap PO DAILY 06/21/17 05/17/20 History [Dyazide 37.5-25 Capsule] amLODIPine [Norvasc] 10 mg PO DAILY 06/21/17 05/17/20 History Naproxen Sodium [Aleve] 220 mg PO DAILY PRN 11/11/17 05/17/20 History Cbd Oil 550 mg SUBLINGUAL DAILY PRN 06/23/19 05/17/20 History Cholecalciferol [Vitamin D3 (25 10,000 unit PO DAILY 04/14/20 05/17/20 History Mcg = 1000 Iu)] Fluticasone Nasal [place] [Flonase 2 spr EA NOSTRIL DAILY 04/14/20 05/17/20 History Nasal [place]] Allergies Allergy/AdvReac Type Severity Reaction Status Date / Time benazepril [From Lotrel] Allergy Rash/Hives Verified 05/17/20 15:02 hydromorphone [From Dilaudid] AdvReac Vomiting Verified 05/17/20 15:02 Exam Vital Signs Temp Pulse Resp BP Pulse Ox 05/17/20 15:05 97.8 F 82 18 163/80 97 Intake and Output 05/17/20 05/17/20 05/17/20 06:59 14:59 22:59 Other: Weight 68.039 kg Height 5 feet 1 inch, weight 150 pounds, BMI 28.3. This is a well-developed well-nourished white female who is alert and oriented times 3 in no acute distress. HEENT: Within normal limits. NECK: Supple without mass or thyromegaly. CHEST AND LUNGS: Clear to auscultation. HEART: Regular rate and rhythm. BREASTS: Are without mass or discharge. AXILLARY EXAM: Negative for adenopathy. BACK: Negative for CVA tenderness. ABDOMEN: Soft, nontender, without palpable masses. PELVIC EXAM: External genitalia appears normal with mild to moderate atrophy. Vagina appears normal with mild to moderate atrophy. There is no evidence of prolapse. Bimanual examination is negative for mass or tenderness. RECTAL EXAM: Rectovaginal exam is negative for mass or tenderness. Hemoccult testing was deferred since she recently had a colonoscopy last month. EXTREMITIES: Nontender. IMPRESSION: 1. 69-year-old menopausal female status post vaginal hysterectomy with normal gynecologic exam. 2. History of right breast cancer status post lumpectomy and radiation therapy in 2009 with no evidence of recurrence. 3. History of osteopenia. 4. Elevated blood pressure with history of chronic hypertension. PLAN: 1. Pap smears have been discontinued. 2. Self breast awareness was discussed with the patient. 3. Mammogram has been done today. 4. Osteoporosis prevention was discussed. I have stressed the importance of adequate calcium, vitamin D and regular exercise. Recommended amounts of calcium and vitamin D were also discussed. Her last bone density test was done on 01/28/2018. Bone density testing will be done today. 5. Her elevated blood pressure was discussed. She states she is planning to do blood pressure checks 3 times a day as that this was recommended by her PCP. She will follow up with her PCP for blood pressure elevations. 6. She states she does not get flu shots and does not plan on getting a flu shots in the future. I have asked her to reconsider this decision. 7. The patient was advised to return in 1-2 years for her well woman examination.
--- NOTE | 2020-05-18 09:21 | BD ---
EXAMINATION TYPE: Axial Bone Density DATE OF EXAM: 05/17/2020 COMPARISON: 01/28/2018 CLINICAL HISTORY: Height: 60.2 IN Weight: 148 LBS FRAX RISK QUESTIONS: Family History (Parent hip fracture): YES MOTHER Secondary Osteoporosis: 3. Menopause before 45: PARTIAL HYST AGE 52 RISK FACTORS HISTORY OF: Family History of Osteoporosis: YES MOTHER Active: YES Postmenopausal woman: PARTIAL HYST AGE 52 Take estrogen and/or progesterone medications: NOT NOW How lon YEARS MEDICATIONS: Additional Medications: VIT D, BLOOD PRESSURE MEDS Additional History: BREAST CANCER WITH RADIATION EXAM MEASUREMENTS: Bone mineral densitometry was performed using the [employer] System. Bone mineral density as measured about the Lumbar spine is: ----- L1-L4(G/cm2): 1.085 T Score Values are as follows: ----- L2: -1.6 ----- L3: -0.7 ----- L4: 0.1 ----- L1-L4: -0.8 Bone mineral density has: Increased 3.3% since study of: 01/28/2018 Bone mineral density about the R hip (g/cm2): 0.931 Bone mineral density about the L hip (g/cm2): 0.901 T Score values are as follows: -----R Neck: -0.8 -----L Neck: -1.0 -----R Total: -0.4 -----L Total: -0.6 Bone mineral density has: Decreased -3.7% since study of: 01/28/2018 IMPRESSION: Normal (Values between +1 and -1 indicate normal bone mass). Consider repeating this study in 5 year s or sooner if there is some new clinical indication. NOTE: T-SCORE=SD OF THE YOUNG ADULT MEAN.
--- NOTE | 2020-05-23 12:05 | MM ---
Reason for exam: screening (asymptomatic). Last mammogram was performed 1 year and 1 month ago. History: Patient is postmenopausal, has history of breast cancer at age 58, and history of other cancer. Lumpectomy of the right breast, 2008. Took hormonal contraceptives for 2 years. Physical Findings: A clinical breast exam by your physician is recommended on an annual basis and results should be correlated with mammographic findings. MG 3D Screening Mammo W/Cad Bilateral CC and MLO view(s) were taken. Prior study comparison: April 14, 2019, bilateral MG 3d screening mammo w/cad. April 09, 2018, mammogram. The breast tissue is heterogeneously dense. This may lower the sensitivity of mammography. There is decreased size and clips in the right breast consistent with known excisional changes redemonstrated. There are benign appearing round dystrophic calcifications in the right breast. There is no discrete abnormality. ASSESSMENT: Benign, BI-RAD 2 RECOMMENDATION: Routine screening mammogram of both breasts in 1 year.
--- NOTE | 2020-05-24 17:51 | P.PN ---
Progress Note - Text Progress Note Date: 05/24/20 OUTPATIENT FOLLOW-UP NOTE TEST(S)/RESULTS: Test results from 05/17/2020 include benign mammogram and bone density showing focal osteopenia fairly stable from her previous test. METHOD OF NOTIFICATION: The patient was notified by phone. PATIENT COMMENTS: DIAGNOSIS: Stable osteopenia and benign mammogram. DISCUSSION: I have stressed the importance of getting adequate calcium, vitamin D and regular exercise. We will repeat the bone density test in 2-3 years. PLAN: The patient was advised to return in 1-2 years for her well woman examination.
== END | disposition home or self-care (01) ==
LOC: WWCWWP 14:44
PROVIDERS: ATTEND Obstetrics & Gynecology
DX: Z12.31 Encounter for screening mammogram for malignant neoplasm of breast (principal); Z78.0 Asymptomatic menopausal state
CPT/HCPCS: 77063; 77067; 77080

== ENCOUNTER → 2021-06-06 | Outpatient (CLI) | payer MEDICARE ==
[2021-06-06 15:28] VITALS: BP 143/84; PULSE 85; RESP 16; TEMP 98.2
--- NOTE | 2021-06-06 17:16 | P.HPOB ---
History of Present Illness H&P Date: 06/06/21 Chief Complaint: The patient is here for her routine gynecologic exam and ma mmogram. This is a 70-year-old with an LMP of 2000 for. She is status post vaginal hysterectomy for benign reasons. He is without gynecologic complaints. Review of Systems The patient's weight has been stable over the last year. She denies respiratory, cardiac, or G.I. problems. Past Medical History Past Medical History: Cancer, Hypertension, Osteoarthritis (OA) Additional Past Medical History / Comment(s): right side breast CA with lymph node removal 2008(lumpectomy and radiation). Skin cancer. Hx diverticulosis and colon polyps. 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 History of Any Multi-Drug Resistant Organisms: None Reported Past Surgical History: Breast Surgery, Section, Hysterectomy, Tubal Ligation Additional Past Surgical History / Comment(s): Right breast lumpectomy 2008. Colonoscopy 2014., skin cancer removed from shoulder, D & C. Vaginal history 2010. Colonoscopy 2019(Cologard 2024 recommended). Past Anesthesia/Blood Transfusion Reactions: Postoperative Nausea & Vomiting (PONV) Past Psychological History: No Psychological Hx Reported Smoking Status: Former smoker Past Alcohol Use History: None Reported Additional Past Alcohol Use History / Comment(s): Quit smoking in her 30s. Past Drug Use History: None Reported Additional History: She has been since 1970 and does not work outside of the home. - Past Family History Brother(s) Family Medical History: COPD Daughter(s) Family Medical History: Diabetes Mellitus Additional Family Medical History / Comment(s): Type I diabetes. Medications and Allergies Home Medications Medication Instructions Recorded Confirmed Type Triamterene-Hctz 37.5-25Mg 1 cap PO DAILY 06/21/17 06/06/21 History [Dyazide 37.5-25 Capsule] amLODIPine [Norvasc] 10 mg PO DAILY 06/21/17 06/06/21 History Naproxen Sodium [Aleve] 220 mg PO DAILY PRN 11/11/17 06/06/21 History Cbd Oil 550 mg SUBLINGUAL DAILY PRN 06/23/19 06/06/21 History Cholecalciferol [Vitamin D3 (25 10,000 unit PO DAILY 04/14/20 06/06/21 History Mcg = 1000 Iu)] Fluticasone Nasal [place] [Flonase 2 spr EA NOSTRIL DAILY 04/14/20 06/06/21 History Nasal [place]] Allergies Allergy/AdvReac Type Severity Reaction Status Date / Time benazepril [From Lotrel] Allergy Rash/Hives Verified 06/06/21 15:14 hydromorphone [From Dilaudid] AdvReac Vomiting Verified 06/06/21 15:14 Exam Vital Signs Temp Pulse Resp BP Pulse Ox 06/06/21 15:15 98.2 F 85 16 143/84 96 Intake and Output 06/06/21 06/06/21 06/06/21 06:59 14:59 22:59 Other: Weight 68.492 kg Height 5 feet 1 inch, weight 151 pounds, BMI 28.5. This is a well-developed well-nourished white female who is alert and oriented times 3 in no acute distress. HEENT: Within normal limits. NECK: Supple without mass or thyromegaly. CHEST AND LUNGS: Clear to auscultation. HEART: Regular rate and rhythm. BREASTS: Are without mass or discharge. There is a scarred area in the right upper outer quadrant consistent with her previous lumpectomy. AXILLARY EXAM: Negative for adenopathy. BACK: Negative for CVA tenderness. ABDOMEN: Soft, nontender, without palpable masses. PELVIC EXAM: External genitalia appears normal with mild to moderate atrophy. Vagina appears normal with mild to moderate atrophy. There is no evidence of prolapse. Bimanual examination is negative for mass or tenderness. RECTAL EXAM: Rectovaginal exam is negative for mass or tenderness and is negative for occult blood. EXTREMITIES: Nontender. IMPRESSION: 1. 70-year-old menopausal female status post vaginal hysterectomy for benign reasons, with normal gynecologic exam. 2. History of right breast cancer status post lumpectomy and radiation therapy with no evidence of recurrence on exam today. 3. History of osteopenia. PLAN: 1. Pap smears have been discontinued. 2. Self breast awareness was discussed with the patient. Symptoms associated with inflammatory breast cancer were reviewed with the patient. 3. Osteoporosis prevention was discussed. I have stressed the importance of adequate calcium, vitamin D and regular exercise. Recommended amounts of calcium and vitamin D were also discussed. We will plan on repeating bone density testing in 1-2 years. 4. She has not received a Covid vaccination. I have recommended that she consider getting a Covid vaccination and we have discussed potential benefits. 5. Screening mammogram was done today. 6. The patient was advised to return in 1-2 years for her well woman examination.
--- NOTE | 2021-06-07 14:56 | MM ---
Reason for exam: screening (asymptomatic). Last mammogram was performed 1 year and 1 month ago. History: Patient is postmenopausal, has history of breast cancer at age 58, and history of other cancer. Lumpectomy of the right breast, 2008. Radiation therapy of the right breast, 2008. Took hormonal contraceptives for 2 years. Took antineoplastic beginning at age 60. Physical Findings: A clinical breast exam by your physician is recommended on an annual basis and results should be correlated with mammographic findings. MG 3D Screening Mammo W/Cad Bilateral CC and MLO view(s) were taken. Prior study comparison: May 17, 2020, bilateral MG 3d screening mammo w/cad. April 14, 2019, bilateral MG 3d screening mammo w/cad. April 09, 2018, mammogram. There are scattered fibroglandular densities. Post therapy and post surgical changes on the right. Benign oil cyst calcifications on the right. No significant changes when compared with prior studies. ASSESSMENT: Benign, BI-RAD 2 RECOMMENDATION: Routine screening mammogram of both breasts in 1 year.
== END ==
LOC: WWCWWP 14:39
PROVIDERS: ATTEND Obstetrics & Gynecology
DX: Z12.31 Encounter for screening mammogram for malignant neoplasm of breast (principal); Z01.419 Encounter for gynecological examination (general) (routine) without abnormal findings; I10 Essential (primary) hypertension; M19.90 Unspecified osteoarthritis, unspecified site; Z85.3 Personal history of malignant neoplasm of breast; Z87.891 Personal history of nicotine dependence; Z90.710 Acquired absence of both cervix and uterus; Z88.5 Allergy status to narcotic agent; Z87.39 Personal history of other diseases of the musculoskeletal system and connective tissue; Z98.890 Other specified postprocedural states; Z88.8 Allergy status to other drugs, medicaments and biological substances
CPT/HCPCS: 77063; 77067

== ENCOUNTER → 2022-06-19 | Outpatient (CLI) | payer MEDICARE ==
[2022-06-20 07:46] VITALS: BP 149/75; PULSE 51; RESP 17; TEMP 97.9
--- NOTE | 2022-06-20 08:37 | WWHP ---
[facility] - HISTORY AND PHYSICAL CHIEF COMPLAINT: The patient is here for her routine gynecologic exam and mammogram. HISTORY OF PRESENT ILLNESS: This is a 71-year-old G5, P5, with an LMP of 2003. The patient is status post vaginal hysterectomy for benign reasons. She is without gynecologic complaints at this time. PAST MEDICAL HISTORY: Chronic hypertension, osteoarthritis, right breast cancer in 2009 and she is status post lumpectomy and radiation, skin cancer, diverticulosis, colon polyps. 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 MEDICATIONS: Please see the electronic medical record for her medications. ALLERGIES: To benazepril which caused a rash and hydromorphone which caused vomiting. PAST SURGICAL HISTORY: Please see the electronic medical record for details. SOCIAL HISTORY: She quit smoking in her 30s. She denies alcohol and drug use. She has been a since earlier in 2021. She does not work outside of the home. REVIEW OF SYSTEMS: She has lost 8 pounds over the past year. She denies respiratory, cardiac, or GI problems. FAMILY HISTORY: Unchanged from the 06/06/2021 H and P. PHYSICAL EXAMINATION: VITAL SIGNS: Blood pressure 149/75, height 5 feet 1 inch, weight 143 pounds, temperature 97.9, pulse 51, pulse oximeter 96%, and BMI 27. GENERAL: This is a well-developed, well-nourished, white female, who is alert and oriented x3, in no acute distress. HEENT: Within normal limits. NECK: Supple without mass or thyromegaly. CHEST AND LUNGS: Clear to auscultation. HEART: Regular rate and rhythm. BREASTS: Without mass or discharge. There is a scarred area in the right upper outer quadrant consistent with her previous lumpectomy. AXILLARY: Negative for adenopathy. BACK: Negative for CVA tenderness. ABDOMEN: Soft, nontender, without palpable masses. PELVIC: External genitalia reveals normal [id number] atrophy without lesions. Vagina appears normal with [id number] atrophy. There is no evidence of prolapse. Bimanual examination is negative for mass or tenderness. RECTOVAGINAL: Negative for mass or tenderness and is negative for occult blood. EXTREMITIES: Nontender. IMPRESSION: 1. A 71-year-old menopausal female, who is status post vaginal hysterectomy for benign reasons with normal gynecologic exam. 2. History of right breast cancer, status post lumpectomy and radiation therapy with no evidence of recurrence on exam today. 3. History of osteopenia. PLAN: 1. Pap smears have been discontinued. 2. Breast awareness was discussed with the patient. Symptoms associated with inflammatory breast cancer were reviewed with the patient. 3. Osteoporosis prevention was discussed. Bone density testing will be done today. 4. She has not received a COVID vaccination, but has had COVID. I have recommended that she look into vaccination. She is declining vaccination at this time. 5. Diagnostic mammogram was done today. 6. She will return in 1 year for her well-woman examination. MMODL / IJN: [id number] /
== END ==
LOC: WWCWWP 12:29
PROVIDERS: ATTEND Obstetrics & Gynecology
DX: Z12.31 Encounter for screening mammogram for malignant neoplasm of breast (principal); Z01.419 Encounter for gynecological examination (general) (routine) without abnormal findings; Z87.891 Personal history of nicotine dependence; Z88.8 Allergy status to other drugs, medicaments and biological substances; Z88.5 Allergy status to narcotic agent
CPT/HCPCS: 77063; 77067

== ENCOUNTER → 2023-07-02 | Outpatient (CLI) | payer MEDICARE ==
[2023-07-02 15:44] VITALS: BP 144/86; PULSE 86; RESP 16; TEMP 97.9
--- NOTE | 2023-07-02 17:30 | P.HPOB ---
History of Present Illness H&P Date: 07/02/23 Chief Complaint: The patient is here for her routine gynecologic exam and ma mmogram. This is a 72-year-old with an LMP of 2003. She is status post vaginal hysterectomy for benign reasons. She is without gynecologic complaints. Review of Systems The patient has lost 13 pounds over the last year. She denies respiratory, cardiac, or G.I. problems. Past Medical History Past Medical History: Cancer, Hypertension, Osteoarthritis (OA) Additional Past Medical History / Comment(s): right side breast CA with lymph node removal 2008(lumpectomy and radiation). Skin cancer. Hx diverticulosis and colon polyps. 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 History of Any Multi-Drug Resistant Organisms: None Reported Past Surgical History: Breast Surgery, Section, Hysterectomy, Tubal Ligation Additional Past Surgical History / Comment(s): Right breast lumpectomy 2008. Colonoscopy 2014., skin cancer removed from shoulder, D & C. Vaginal history 2010. Colonoscopy 2019(Cologard 2024 recommended). Past Anesthesia/Blood Transfusion Reactions: Postoperative Nausea & Vomiting (PONV) Past Psychological History: No Psychological Hx Reported (PHQ-2 questionaire was given and she scores 0. This is a negative screen for depression.) Smoking Status: Former smoker Past Alcohol Use History: None Reported Additional Past Alcohol Use History / Comment(s): Quit smoking in her 30s. Past Drug Use History: None Reported Additional History: She is a and does not work outside of the home. - Past Family History Brother(s) Family Medical History: COPD Daughter(s) Family Medical History: Diabetes Mellitus Additional Family Medical History / Comment(s): Type I diabetes. Medications and Allergies Home Medications Medication Instructions Recorded Confirmed Type Triamterene-Hctz 37.5-25Mg 1 cap PO DAILY 06/21/17 07/02/23 History [Dyazide 37.5-25 Capsule] amLODIPine [Norvasc] 10 mg PO DAILY 06/21/17 07/02/23 History Naproxen Sodium [Aleve] 220 mg PO DAILY PRN 11/11/17 07/02/23 History Cholecalciferol [Vitamin D3 (25 10,000 unit PO DAILY 04/14/20 07/02/23 History Mcg = 1000 Iu)] Fluticasone Nasal [place] [Flonase 2 spr EA NOSTRIL DAILY 04/14/20 07/02/23 History Nasal [place]] Allergies Allergy/AdvReac Type Severity Reaction Status Date / Time benazepril [From Lotrel] Allergy Rash/Hives Verified 07/02/23 15:25 hydromorphone [From Dilaudid] AdvReac Vomiting Verified 07/02/23 15:25 Exam Vital Signs Temp Pulse Resp BP Pulse Ox 07/02/23 15:25 97.9 F 86 16 144/86 97 Intake and Output 07/02/23 07/02/23 07/02/23 06:59 14:59 22:59 Other: Weight 62.596 kg Height 5 foot 1 inch, weight 138 pounds, BMI 26.1. This is a well-developed well-nourished white female who is alert and oriented times 3 in no acute distress. HEENT: Within normal limits. NECK: Supple without mass or thyromegaly. CHEST AND LUNGS: Clear to auscultation. HEART: Regular rate and rhythm. BREASTS: Are without mass or discharge. AXILLARY EXAM: Negative for adenopathy. BACK: Negative for CVA tenderness. ABDOMEN: Soft, nontender, without palpable masses. PELVIC EXAM: External genitalia appears normal with mild atrophy. Vagina appears normal with mild atrophy. There is no evidence of prolapse. Bimanual examination is negative for mass or tenderness. RECTAL EXAM: Rectovaginal exam is negative for mass or tenderness and is negative for occult blood. EXTREMITIES: Nontender. IMPRESSION: 1. 72-year-old menopausal female status post vaginal hysterectomy for benign reasons, with normal gynecologic exam. 2. History of right breast cancer status post lumpectomy and radiation therapy, with no evidence of recurrence at this time. 3. History of osteopenia. PLAN: 1. Pap smears have been discontinued. 2. Self breast awareness was discussed with the patient. We have also discussed symptoms associated with inflammatory breast cancer. 3. Diagnostic bilateral mammogram was done today. 4. Osteoporosis prevention was discussed. I have stressed the importance of adequate calcium, vitamin D and regular exercise. Recommended amounts of calcium and vitamin D were also discussed. We will plan on repeating the bone density test in 1 year. 5. PHQ-2 questionaire was given and she scores 0. This is a negative screen for depression. 6. She was advised to return in one year for her annual well woman exam.
== END ==
LOC: WWCWWP 15:17
PROVIDERS: ATTEND Obstetrics & Gynecology
DX: Z01.419 Encounter for gynecological examination (general) (routine) without abnormal findings (principal); I10 Essential (primary) hypertension; M19.90 Unspecified osteoarthritis, unspecified site; M85.80 Other specified disorders of bone density and structure, unspecified site; Z85.3 Personal history of malignant neoplasm of breast; Z85.828 Personal history of other malignant neoplasm of skin; Z87.19 Personal history of other diseases of the digestive system; Z87.891 Personal history of nicotine dependence; Z12.31 Encounter for screening mammogram for malignant neoplasm of breast; Z90.710 Acquired absence of both cervix and uterus; Z92.3 Personal history of irradiation; Z78.0 Asymptomatic menopausal state; Z88.5 Allergy status to narcotic agent; Z88.8 Allergy status to other drugs, medicaments and biological substances
CPT/HCPCS: 77063; 77067

== ENCOUNTER → 2024-07-03 | Outpatient (CLI) | payer MEDICARE ==
--- NOTE | 2024-07-06 11:43 | MM ---
Reason for Exam: Screening (asymptomatic). Last screening mammogram was performed 12 month(s) ago. Patient History: Menarche at age 14. First Full-Term at age 20. Hysterectomy at age 60. Postmenopausal. Breast cancer, right, age 58. Other cancer. Patient used Hormonal Contraceptives for 2 years. 2008, Lumpectomy on the Right side. 2008, Radiation Therapy on the right side. Prior Study Comparison: 06/06/2021 Bilateral Screening Mammogram, [facility]. 06/19/2022 Bilateral MG 3D screening mammo w/cad, [facility]. 07/02/2023 Bilateral MG 3D screening mammo w/cad, [facility]. Tissue Density: The breasts are heterogeneously dense, which may obscure small masses. Findings: Analyzed By CAD. The pattern is symmetrical. Benign round and spherical calcifications are within the right breast. No suspicious groups of microcalcifications, spiculated or lobular masses, architectural distortion or other secondary signs of malignancy are mammographically apparent. Overall Assessment: Benign, BI-RAD 2 Management: Screening Mammogram of both breasts in 1 year. A negative mammogram report should not preclude additional follow up of suspicious palpable abnormalities. Patient should continue monthly self breast exam. A clinical breast exam by your physician is recommended on an annual basis and results should be correlated with mammographic findings. Note on Saba scores and lifetime risk: 1. A Saba score greater than 3% is considered moderate risk. If this is the case, consider specialist referral to assess eligibility for a risk reducing agent. 2. If overall lifetime risk for the development of breast cancer is 20% or higher, the patient may qualify for future screening with alternating mammogram and breast MRI. [facility], , 07/06/2024 11:41 AM. Electronically signed and approved by: Bhavesh Palacios D.O. Radiolog[facility]
== END | disposition home or self-care (01) ==
LOC: RADMAMWWP 11:20
PROVIDERS: ATTEND Family Medicine
CPT/HCPCS: 77063; 77067